=== PATIENT | female | born 1945 | race Caucasian/White ===

== ENCOUNTER 2022-05-28 07:06 | Day surgery (SDC) | payer MEDICAID ==
[~2022-05-28] VITALS: Ht 152.4 cm; Wt 85.7 kg
[2022-05-28] MEDS ORDERED: SIMETHICONE 40 MG/0.6 ML ML ONE (08:22)
[2022-05-28] MEDS ORDERED: fentaNYL CITRATE/PF 100 MCG/2 ML AMP ONE (08:22)
[2022-05-28] MEDS ORDERED: BENZOCAINE 20% 0.5mL UD SPRAY MM ONE (08:22)
[2022-05-28] MEDS ORDERED: MEPERIDINE HCL/PF 25 MG/ML DISP.SYRIN ONE (08:43)
[2022-05-28] MEDS: MIDAZOLAM HCL 5 MG/5 ML VIAL ONE ×4 (08:55→09:13)
[2022-05-28] MEDS ORDERED: MEPERIDINE HCL/PF 25 MG/ML DISP.SYRIN IVP ONE (08:56)
[2022-05-28 16:35] VITALS: BP_SYST 110
== END 2022-05-28 11:00 | disposition home or self-care (01) ==
LOC: SDS 07:06 → SMU 07:07 → SDS 11:00
PROVIDERS: ATTEND Internal Medicine
DX: Z12.11 Encounter for screening for malignant neoplasm of colon (principal); K63.5 Polyp of colon; K21.00 Gastro-esophageal reflux disease with esophagitis, without bleeding; K29.50 Unspecified chronic gastritis without bleeding; K22.2 Esophageal obstruction; I10 Essential (primary) hypertension; Z90.49 Acquired absence of other specified parts of digestive tract; K57.30 Diverticulosis of large intestine without perforation or abscess without bleeding; K64.8 Other hemorrhoids; Z79.899 Other long term (current) drug therapy; Z20.822 Contact with and (suspected) exposure to COVID-19
CPT/HCPCS: 87426; 36415; 45380; 45385; 43239; 88305; 88312; 88313; 99152; 99153; G0378; J2250; J2175; J3010